=== PATIENT | male | born 1940 | race Hispanic/Latino ===

== ENCOUNTER 2018-07-23 15:09 | Emergency (ER) | payer MEDICARE ==
--- NOTE | 2018-07-23 15:22 | Emergency Department Report ---
Blank Doc - Documentation Documentation: 78 y o male brought to ED by [facility] for violence behavior to be admitted here at [facility] joseantonino guanako admitted to behavioral health
[2018-07-23 16:16] LABS: Basophils # (Auto) 0.1 K/mm3 (0.0-0.1); Basophils % (Auto) 0.9 % (0.0-1.8); Eosinophils % (Auto) 11.1 % (0.0-4.3); Hematocrit 31.4 % (35.5-45.6); Lymphocytes # (Auto) 1.4 K/mm3 (1.2-5.4); Lymphocytes % (Auto) 15.9 % (13.4-35.0); Mean Corpuscular HGB Conc 35 % (32-34); Mean Corpuscular Volume 94 fl (84-94); Monocytes # (Auto) 0.8 K/mm3 (0.0-0.8); Monocytes % (Auto) 8.8 % (0.0-7.3); Platelet Count 192 K/mm3 (140-440); Red Blood Count 3.35 M/mm3 (3.65-5.03); Red Cell Distribution Width 13.2 % (13.2-15.2)
[2018-07-23 16:29] LABS: Calcium 8.8 mg/dL (8.4-10.2)
[2018-07-23 16:48] LABS: Amphetamine Screen,Urine PRESUMPTIVE NEGATIVE; Benzodiazepines Screen,Urine PRESUMPTIVE NEGATIVE; Cannabinoid Screen,Urine PRESUMPTIVE NEGATIVE; Cocaine Screen,Urine PRESUMPTIVE NEGATIVE; Methadone Screen,Urine PRESUMPTIVE NEGATIVE; Opiate Screen,Urine PRESUMPTIVE NEGATIVE
[2018-07-23 16:59] LABS: Bacteria,Urine 2+ /HPF (Negative); Mucus,Urine FEW /HPF
[2018-07-23 17:00] LABS: Bilirubin,Urine NEG (Negative); Blood,Urine NEG (Negative); Color,Urine Yellow (Yellow); Urobilinogen,Urine < 2.0 mg/dL (<2.0)
--- NOTE | 2018-07-23 18:23 | Emergency Department Report ---
ED General Adult HPI - General Chief complaint: Psych Stated complaint: MH Time Seen by Provider: 07/23/18 15:17 Source: RN/MD Mode of arrival: Wheelchair Limitations: Altered Mental Status - History of Present Illness Initial comments: The patient presents to our emergency department via EMS from a snf in [place], [place] for placement into a [facility]. The patient has not even a septic to the facility but needs to stop in the ED for medical clearance. The patient has dementia and is not cooperative on my history and physical. -: unknown Severity scale (0 -10): 0 Improves with: none Worsens with: none Associated Symptoms: denies other symptoms - Related Data Allergies Allergy/AdvReac Type Severity Reaction Status Date / Time atorvastatin [From Lipitor] Allergy Unknown Verified 07/23/18 15:14 rosuvastatin [From Crestor] Allergy Unknown Verified 07/23/18 15:14 ED Review of Systems ROS: Stated complaint: MH Other details as noted in HPI Comment: Unobtainable due to pts medical conditions (due to the patient's dementia) ED Past Medical Hx - Past Medical History Previous Medical History?: Yes Hx Hypertension: Yes Hx Diabetes: Yes Additional medical history: ANGINA, DEMENTIA, UTI, ISCHEMIC CARDIOMYOPATHY, HYPERLIPIDEMIA - Surgical History Past Surgical History?: Yes Hx Open Heart Surgery: Yes - Social History Smoking Status: Never Smoker ED Physical Exam - General General appearance: alert, in no apparent distress, other (demented) - Head Head exam: Present: atraumatic, normocephalic - Eye Eye exam: Present: normal appearance - ENT ENT exam: Present: mucous membranes dry - Neck Neck exam: Present: normal inspection - Respiratory Respiratory exam: Present: normal lung sounds bilaterally. Absent: respiratory distress - Cardiovascular Cardiovascular Exam: Present: regular rate, normal rhythm. Absent: systolic murmur, diastolic murmur, rubs, gallop - GI/Abdominal GI/Abdominal exam: Present: soft, normal bowel sounds - Rectal Rectal exam: Present: deferred - Extremities Exam Extremities exam: Present: normal inspection - Back Exam Back exam: Present: normal inspection - Neurological Exam Neurological exam: Present: alert, other (not able to completely assess due to the patient's condition) - Psychiatric Psychiatric exam: Present: other (not able to completely assess due to the patient's condition) - Skin Skin exam: Present: warm, dry, intact, normal color. Absent: rash ED Course Vital Signs 07/23/18 07/23/18 07/23/18 15:18 15:40 15:45 Temperature 97.4 F L Pulse Rate 63 64 39 L Respiratory 18 10 L 10 L Rate Blood Pressure 145/62 95/49 Blood Pressure [Left] O2 Sat by Pulse 97 Oximetry 07/23/18 07/23/18 07/23/18 16:01 16:15 16:31 Temperature Pulse Rate 74 41 L 48 L Respiratory 9 L 11 L 16 Rate Blood Pressure 86/56 95/49 106/44 Blood Pressure 106/44 [Left] O2 Sat by Pulse Oximetry 07/23/18 07/23/18 07/23/18 16:32 16:45 17:01 Temperature Pulse Rate 47 L 63 Respiratory 11 L 15 15 Rate Blood Pressure 106/44 121/46 Blood Pressure [Left] O2 Sat by Pulse 97 Oximetry 07/23/18 07/23/18 07/23/18 17:15 17:31 17:45 Temperature Pulse Rate 51 L 63 59 L Respiratory 26 H 10 L 13 Rate Blood Pressure 107/41 122/77 112/52 Blood Pressure [Left] O2 Sat by Pulse Oximetry ED Medical Decision Making - Lab Data Result diagrams: 07/23/18 16:04 07/23/18 16:04 Lab Results 07/23/18 07/23/18 07/23/18 Range/Units 16:04 16:04 16:04 WBC 8.7 (4.5-11.0) K/mm3 RBC 3.35 L (3.65-5.03) M/mm3 Hgb 11.0 L (11.8-15.2) gm/dl Hct 31.4 L (35.5-45.6) % MCV 94 (84-94) fl MCH 33 H (28-32) pg MCHC 35 H (32-34) % RDW 13.2 (13.2-15.2) % Plt Count 192 (140-440) K/mm3 Lymph % (Auto) 15.9 (13.4-35.0) % Mcintosh % (Auto) 8.8 H (0.0-7.3) % Eos % (Auto) 11.1 H (0.0-4.3) % Baso % (Auto) 0.9 (0.0-1.8) % Lymph # 1.4 (1.2-5.4) K/mm3 Mcintosh # 0.8 (0.0-0.8) K/mm3 Eos # 1.0 H (0.0-0.4) K/mm3 Baso # 0.1 (0.0-0.1) K/mm3 Seg Neutrophils % 63.3 (40.0-70.0) % Seg Neutrophils # 5.5 (1.8-7.7) K/mm3 Sodium 132 L (137-145) mmol/L Potassium 5.0 (3.6-5.0) mmol/L Chloride 101.2 (98-107) mmol/L Carbon Dioxide 19 L (22-30) mmol/L Anion Gap 17 mmol/L BUN 38 H (9-20) mg/dL Creatinine 1.8 H (0.8-1.5) mg/dL Estimated GFR 36 ml/min BUN/Creatinine Ratio 21 % Glucose 417 H (75-100) mg/dL Calcium 8.8 (8.4-10.2) mg/dL Urine Color (Yellow) Urine Turbidity (Clear) Urine pH (5.0-7.0) Ur Specific [place] (1.003-1.030) Urine Protein (Negative) mg/dL Urine Glucose (UA) (Negative) mg/dL Urine Ketones (Negative) mg/dL Urine Blood (Negative) Urine Nitrite (Negative) Urine Bilirubin (Negative) Urine Urobilinogen (<2.0) mg/dL Ur Leukocyte Esterase (Negative) Urine WBC (Auto) (0.0-6.0) /HPF Urine RBC (Auto) (0.0-6.0) /HPF Urine Bacteria (Auto) (Negative) /HPF Urine Mucus /HPF Urine Opiates Screen Urine Methadone Screen Ur Barbiturates Screen Ur Phencyclidine Scrn Ur Amphetamines Screen U Benzodiazepines Scrn Urine Cocaine Screen U Marijuana (THC) Screen Drugs of Abuse Note Plasma/Serum Alcohol < 0.01 (0-0.07) % 07/23/18 07/23/18 Range/Units 16:27 Unknown WBC (4.5-11.0) K/mm3 RBC (3.65-5.03) M/mm3 Hgb (11.8-15.2) gm/dl Hct (35.5-45.6) % MCV (84-94) fl MCH (28-32) pg MCHC (32-34) % RDW (13.2-15.2) % Plt Count (140-440) K/mm3 Lymph % (Auto) (13.4-35.0) % Mcintosh % (Auto) (0.0-7.3) % Eos % (Auto) (0.0-4.3) % Baso % (Auto) (0.0-1.8) % Lymph # (1.2-5.4) K/mm3 Mcintosh # (0.0-0.8) K/mm3 Eos # (0.0-0.4) K/mm3 Baso # (0.0-0.1) K/mm3 Seg Neutrophils % (40.0-70.0) % Seg Neutrophils # (1.8-7.7) K/mm3 Sodium (137-145) mmol/L Potassium (3.6-5.0) mmol/L Chloride (98-107) mmol/L Carbon Dioxide (22-30) mmol/L Anion Gap mmol/L BUN (9-20) mg/dL Creatinine (0.8-1.5) mg/dL Estimated GFR ml/min BUN/Creatinine Ratio % Glucose (75-100) mg/dL Calcium (8.4-10.2) mg/dL Urine Color Yellow (Yellow) Urine Turbidity Clear (Clear) Urine pH 5.0 (5.0-7.0) Ur Specific [place] 1.015 (1.003-1.030) Urine Protein 30 mg/dl (Negative) mg/dL Urine Glucose (UA) >=500 (Negative) mg/dL Urine Ketones Neg (Negative) mg/dL Urine Blood Neg (Negative) Urine Nitrite Neg (Negative) Urine Bilirubin Neg (Negative) Urine Urobilinogen < 2.0 (<2.0) mg/dL Ur Leukocyte Esterase Neg (Negative) Urine WBC (Auto) 1.0 (0.0-6.0) /HPF Urine RBC (Auto) 1.0 (0.0-6.0) /HPF Urine Bacteria (Auto) 2+ (Negative) /HPF Urine Mucus Few /HPF Urine Opiates Screen Presumptive negative Urine Methadone Screen Presumptive negative Ur Barbiturates Screen Presumptive negative Ur Phencyclidine Scrn Presumptive negative Ur Amphetamines Screen Presumptive negative U Benzodiazepines Scrn Presumptive negative Urine Cocaine Screen Presumptive negative U Marijuana (THC) Screen Presumptive negative Drugs of Abuse Note Disclamer Plasma/Serum Alcohol (0-0.07) % - Medical Decision Making Patient Ricardo 1 L of fluid for his dehydration Patient cleared to go to the psychiatric unit with medical consultation as needed Critical care attestation.: If time is entered above; I have spent that time in minutes in the direct care of this critically ill patient, excluding procedure time. ED Disposition Clinical Impression: CLARA (acute kidney injury), Dehydration, Dementia Disposition: [id number]/TX-65 PSY HOSP/PSY UNIT Is pt being admited?: Yes Does the pt Need Aspirin: No Condition: Stable Referrals: RUBEN BARAJAS MD [Primary Care Provider] - 3-5 Days Time of Disposition: 18:23
[2018-07-23] MEDS ORDERED: NACL 0.9% 1000 ML 1,000 ML IV ONE (18:25)
[2018-07-24 01:38] VITALS: BP 155/89
== END 2018-07-24 01:38 ==
LOC: ED 15:09
DX: E86.0 Dehydration (principal); F03.90 Unspecified dementia, unspecified severity, without behavioral disturbance, psychotic disturbance, mood disturbance, and anxiety; I20.9 Angina pectoris, unspecified; I42.9 Cardiomyopathy, unspecified; E78.5 Hyperlipidemia, unspecified; E11.9 Type 2 diabetes mellitus without complications; I10 Essential (primary) hypertension; N17.9 Acute kidney failure, unspecified; Z88.8 Allergy status to other drugs, medicaments and biological substances
CPT/HCPCS: 36415; 80048; 80307; 81001; 85025; 96360; 99283; G0480; J7030; 80320

== ENCOUNTER 2018-07-23 16:19 | Inpatient (IN) | payer MEDICARE ==
[2018-07-24] MEDS ORDERED: GEODON IM PRN (01:11)
--- NOTE | 2018-07-24 08:06 | History and Physical Report ---
GP History & Physical - History of Present Illness Date of admission: 07/23/18 Date of Examination: 07/24/18 Reason for Admission: Danger to self, Danger to others, Unable to care for self Chief Complaint: Agitation per [place] report (patient is aphasic) History of Present Illness: The patient is an 78yo male with history of Dementia and multiple medical problems including HTN, CAD, DM and unsteady gait with frequent falls. He was transferred from [facility] for inpatient psychiatry treatment. The patient is reportedly agitated, uncooperative with cares, undresses and crawls on the floor, refuses to use the wheelchair and insists on walking independently despite being unsteady. The patient is not able to engage in meaningful conversation. I contacted the patient's son (Bobby, [phone]) for collateral information. Bobby reports that patient was diagnosed with dementia over one year ago, he is not aware of patient experiencing adverse reaction to psychotropic medications and consents to medication adjustment with the aim of improving patient's behavior. Legal Status: DPOA for Mental Health Patient Problems: Current Active Problems Delirium due to medical condition with behavioral disturbance (Acute) Major neurocognitive disorder due to Alzheimer's disease, probable, with behavioral disturbance (Acute) Reaction to Hospitalization: Opposed Substance History - Substance History Drug Use: none Hx Tobacco Use: No Alcohol Use: No (Uknown) Past psychiatric history - Past Medical History Past Medical History: CAD, diabetes - past Psychiatric treatment and history Psych: Depression - Social History Social history: other (Patient lives in a Nursing facility) Review of Systems ROS unobtainable: due to mental status Results - Results Labs/Vitals: Laboratory Last Values POC Glucose 221 (70-105) H 07/24/18 07:28 Physical Examination - Constitutional General appearance: Present: no acute distress, well-nourished - EENT Eyes: Present: PERRL, EOM intact ENT: clear oral mucosa - Neck Neck: Present: supple, normal ROM - Respiratory Respiratory effort: normal Mental Status Exam - Exam Orientation: person Affect: agitated Mood: congruent with affect Thought Process: Disorganized Perceptions: visual Speech: paucity Concentration: unable to pay attention Motor activity: restless, agitated Level of consciousness: confused Memory: Recent Impaired, Remote Impaired Interaction: hostile, irritable, uncooperative Assessment and Plan - Psychiatric problem (1) Major neurocognitive disorder due to Alzheimer's disease, probable, with be havioral disturbance Current Visit: Yes Status: Acute (2) Delirium due to medical condition with behavioral disturbance Current Visit: Yes Status: Acute plan to address problem: Patient will be admitted for inpatient psychiatric evaluation, medication adjustment and close monitoring The patient's behavior, mood, sleep and appetite will be closely monitored. Patient will be enrolled in individual and group therapeutic sessions and encouraged to attend. Patient will be provided with a safe and structured environment. Patient's physical health needs will be addressed by the Hospitalist. Social Assessment will be completed and the Compositor Apprentice will work with patient and family to ensure a suitable and safe disposition Medication adjustment will be made as clinically indicated The patient's son agreed on the treatment plan, understood the risk, benefit, alternative treatment, potential consequence of no treatment, and gave informed consent. Physician Certification - Certification Statement Physician Certification Statement: This is an acknowledgement statement that SALLY RODRIGUEZ is a 78 year old M who requires inpatient psychiatric admission for treatment which could reasonably be expected to improve the patient's condition for Dementia with behavioral disturbance Estimated period of time patient will need to remain in the hospital: 7 days Plan for post-hospital care: Out-patient care
[2018-07-24] MEDS ORDERED: ATIVAN IM PRN (09:19)
[2018-07-24 09:39] LABS: Chol/HDL Ratio 4.25 %
[2018-07-24] MEDS ORDERED: D50W (25GM) Syringe IV PRN (12:57)
--- NOTE | 2018-07-24 12:57 | Consultation ---
History of Present Illness - Reason for Consult Consult date: 07/24/18 DM, cellulitis - History of Present Illness The patient is an 78yo male with history of Dementia and multiple medical problems including HTN, CAD, DM and unsteady gait with frequent falls. He was transferred from [facility] for inpatient psychiatry treatment. The patient is reportedly agitated, uncooperative with cares, undresses and crawls on the floor, refuses to use the wheelchair and insists on walking independently despite being unsteady. Patient reportedly had right foot cellulitis that was being treated with Keflex. Consultation has been called for continued monitoring and treatment for the cellulitis and medical management of diabetes mellitus and hypertension. Past History Past Medical History: CAD, diabetes, hypertension Past Surgical History: Other (unable to obtain due to mental status) Social history: other (Patient lives in a Nursing facility) Family history: other (unable to obtain due to mental status) Medications and Allergies Allergies Allergy/AdvReac Type Severity Reaction Status Date / Time atorvastatin [From Lipitor] Allergy Unknown Verified 07/23/18 15:14 rosuvastatin [From Crestor] Allergy Unknown Verified 07/23/18 15:14 Home Medications Medication Instructions Recorded Confirmed Last Taken Type Acetaminophen TAB 325 mg PO Q4-6H PRN MDD 3g/day 07/24/18 07/24/18 Unknown History Acidophilus Lactobacilli 1 cap PO TID 07/24/18 07/24/18 Unknown History Aspirin 81 mg PO DAILY 07/24/18 07/24/18 Unknown History Calcitriol (Nf) 0.25 mcg PO 3XW 07/24/18 07/24/18 Unknown History Colace CAP 100 mg PO DAILY 07/24/18 07/24/18 Unknown History Coreg 6.25 mg PO DAILY 07/24/18 07/24/18 Unknown History Dulcolax suppos 10 mg [place] PRN PRN 07/24/18 07/24/18 Unknown History Ferrous Sulfate 325 mg PO BID 07/24/18 07/24/18 Unknown History Fleet Enema 1 dose AZ PRN PRN 07/24/18 07/24/18 Unknown History Humalog 100 UNITS/ML Kwikpen 10 units SQ PCHS 07/24/18 07/24/18 Unknown History Isosorbide Mononitrate 30 mg PO DAILY 07/24/18 07/24/18 Unknown History Keflex 500 mg PO 4XD 07/24/18 07/24/18 Unknown History Lantus Solostar 10 units SQ HS 07/24/18 07/24/18 Unknown History Milk of Magnesia 30 ml PO PRN PRN 07/24/18 07/24/18 Unknown History Protonix TAB 40 mg PO DAILY 07/24/18 07/24/18 Unknown History Active Meds: Active Medications Lorazepam (Ativan) 0.5 mg PO TID STEVEN Lorazepam (Ativan) 1 mg IM Q4H PRN PRN Reason: Agitation Melatonin (Melatonin) 5 mg PO QHS STEVEN Mirtazapine (Remeron Solutab) 15 mg PO QHS STEVEN Risperidone (Risperdal) 1 mg PO HS STEVEN Review of Systems ROS unobtainable: due to mental status Exam - Constitutional Vitals: Temp Pulse Resp BP Pulse Ox 97.4 F L 43 L 122/58 98 07/24/18 07:45 07/24/18 07:45 07/24/18 07:45 07/24/18 07:45 General appearance: Present: no acute distress, well-nourished - EENT Eyes: Present: PERRL ENT: hearing intact, clear oral mucosa - Neck Neck: Present: supple, normal ROM - Respiratory Respiratory effort: normal Respiratory: bilateral: CTA - Cardiovascular Heart Sounds: Present: S1 & S2. Absent: rub, click - Extremities Extremities: pulses symmetrical, No edema Peripheral Pulses: within normal limits - Abdominal General gastrointestinal: Present: soft, non-tender, non-distended, normal bowel sounds Male genitourinary: Present: normal - Integumentary Integumentary: Present: clear, warm, dry - Musculoskeletal Musculoskeletal: gait normal, strength equal bilaterally - Psychiatric Psychiatric: appropriate mood/affect, intact judgment & insight - Neurologic Neurologic: CNII-XII intact, moves all extremities Results - Labs Labs: Abnormal lab results 07/24/18 07/24/18 07/24/18 Range/Units 07:28 08:36 08:36 POC Glucose 221 H (70-105) Hemoglobin A1c 8.5 H (4-6) % Triglycerides 177 H (2-149) mg/dL HDL Cholesterol 36 L (40-59) mg/dL 07/24/18 Range/Units 11:18 POC Glucose 227 H (70-105) Hemoglobin A1c (4-6) % Triglycerides (2-149) mg/dL HDL Cholesterol (40-59) mg/dL Assessment and Plan Right foot cellulitis. Continue Keflex. Check CBC and right foot x-rays rule out foreign body. Diabetes mellitus type 2. Accu-Cheks as well as discussed. Hypertension. Resume antihypertensive medications. Dementia with behavioral disturbances. Continue per [facility] psych team. History of coronary artery disease/CABG Ischemic cardiomyopathy.
[2018-07-24 14:27] LABS: Hematocrit 31.6 % (35.5-45.6); Hemoglobin 11.1 gm/dl (11.8-15.2); Mean Corpuscular HGB Conc 35 % (32-34); Mean Corpuscular Volume 94 fl (84-94); Platelet Count 185 K/mm3 (140-440); Red Blood Count 3.37 M/mm3 (3.65-5.03); Red Cell Distribution Width 13.4 % (13.2-15.2)
[2018-07-24] MEDS: ATIVAN PO SCH ×2 (14:40→20:39)
[2018-07-24 14:44] LABS: Calcium 8.7 mg/dL (8.4-10.2)
--- NOTE | 2018-07-24 14:54 | XRay Report ---
X-RAY RIGHT FOOT 2 VIEWS: 07/24/18 12:58:00 CLINICAL: Cellulitis. FINDINGS: No fracture or dislocation. Plantar and Achilles calcaneal enthesophytes. No other bone lesion. The joint spaces are normal. Moderate soft tissue swelling of the dorsum of the forefoot. No soft tissue air or foreign body. IMPRESSION: Nonspecific soft tissue swelling. No signs of osteomyelitis or air producing soft tissue infection. Calcaneal enthesopathy.
[2018-07-24 15:40] LABS: Basophils % (Manual) 0 % (0.0-1.8); Total Cells Counted 100
[2018-07-24 15:41] LABS: Anisocytosis Few; Platelet Estimate Consistent w Auto
[2018-07-24] MEDS: HumuLIN R SUB-Q SCH ×2 (17:06→21:19)
[2018-07-24] MEDS: KEFLEX PO SCH (17:06)
[2018-07-24] MEDS: REMERON SOLUTAB PO SCH (21:02)
[2018-07-24] MEDS ORDERED: MELATONIN PO SCH (22:00)
[2018-07-24] MEDS ORDERED: RisperDAL PO SCH (22:00)
[2018-07-25] MEDS: KEFLEX PO SCH ×4 (01:06→17:40)
[2018-07-25] MEDS: HumuLIN R SUB-Q SCH ×4 (08:34→21:18)
[2018-07-25] MEDS: ATIVAN PO SCH ×2 (08:35→13:52)
[2018-07-25] MEDS: HALDOL IM PRN (11:08)
--- NOTE | 2018-07-25 16:39 | Progress Note ---
Subjective Date of service: 07/25/18 Principal diagnosis: Dementia with behavioral disturbance Subjective Comment: The patient is agitated, uncooperative with cares, undresses and crawls on the floor, refuses to use the wheelchair and insists on walking independently despite being unsteady. He is restless this morning, unable to feed himself, confused, combative and up last night. He received PRN Ativan at 02:36hrs last night. Objective - Criteria for Continued Treatment Criteria for Continued Treatment: Improving Level of Functioning, Improving Treatment / Medication Compliance, Stablizing Level of Functioning, Improving Emotional/Socia - Mental Status Mental Status: Lethargic - Objective Observation Participation Level: Minimal Reason(s) For Not Participating: Behaviors, Unable, Wandering Assessment and Plan - Patient Problems (1) Major neurocognitive disorder due to Alzheimer's disease, probable, with behavioral disturbance Current Visit: Yes Status: Acute (2) Delirium due to medical condition with behavioral disturbance Current Visit: Yes Status: Acute Plan to address problem: Patient will be admitted for inpatient psychiatric evaluation, medication adjustment and close monitoring The patient's behavior, mood, sleep and appetite will be closely monitored. Patient will be enrolled in individual and group therapeutic sessions and encouraged to attend. Patient will be provided with a safe and structured environment. Patient's physical health needs will be addressed by the Hospitalist. Social Assessment will be completed and the Driver will work with patient and family to ensure a suitable and safe disposition Medication adjustment will be made as clinically indicated Will discontinue Lorazepam and start Clonazepam with the aim of weaning it off as soon as possible. Will start Low dose Trazodone and Divalproex to calm patient without sedating him. Continue Risperidone for distressing visual hallucinations The patient's son agreed on the treatment plan, understood the risk, benefit, alternative treatment, potential consequence of no treatment, and gave informed consent.
[2018-07-25] MEDS: REMERON SOLUTAB PO SCH (21:06)
[2018-07-25] MEDS: LANTUS SUB-Q SCH (21:06)
[2018-07-25] MEDS: MELATONIN PO SCH (21:21)
[2018-07-25] MEDS ORDERED: RisperDAL PO SCH (22:00)
[2018-07-26] MEDS: KEFLEX PO SCH ×4 (01:22→17:49)
[2018-07-26] MEDS: DESYREL PO PRN (02:35)
[2018-07-26] MEDS: HALDOL IM PRN ×2 (03:20→17:48)
--- NOTE | 2018-07-26 09:14 | Progress Note ---
Subjective Date of service: 07/26/18 Principal diagnosis: Dementia with behavioral disturbance Subjective Comment: Nursing staff reports that patient is up awake, alert, confused and ambulating in the edouard. Gait remains unsteady and patient is holding the rail. Patient attempts to open doors. Not easily redirected. He continues to require PRN medication for agitation. He continues to be agitated and restless. Objective - Criteria for Continued Treatment Criteria for Continued Treatment: Improving Level of Functioning, Improving Treatment / Medication Compliance, Stablizing Level of Functioning, Improving Emotional/Socia - Mental Status Mental Status: Lethargic - Objective Observation Participation Level: None Reason(s) For Not Participating: Unable, Wandering Assessment and Plan - Patient Problems (1) Major neurocognitive disorder due to Alzheimer's disease, probable, with behavioral disturbance Current Visit: Yes Status: Acute (2) Delirium due to medical condition with behavioral disturbance Current Visit: Yes Status: Acute Plan to address problem: Patient will be admitted for inpatient psychiatric evaluation, medication adjustment and close monitoring The patient's behavior, mood, sleep and appetite will be closely monitored. Patient will be enrolled in individual and group therapeutic sessions and encouraged to attend. Patient will be provided with a safe and structured environment. Patient's physical health needs will be addressed by the Hospitalist. Social Assessment will be completed and the Rn Transplant will work with patient and family to ensure a suitable and safe disposition Medication adjustment will be made as clinically indicated Will discontinue Lorazepam and start Clonazepam with the aim of weaning it off as soon as possible. Will continue low dose Trazodone and Divalproex to calm patient without sedating him. Continue Risperidone for distressing visual hallucinations The patient's son agreed on the treatment plan, understood the risk, benefit, alternative treatment, potential consequence of no treatment, and gave informed consent.
[2018-07-26] MEDS: HumuLIN R SUB-Q SCH ×4 (10:24→21:49)
[2018-07-26] MEDS: REMERON SOLUTAB PO SCH (21:37)
[2018-07-26] MEDS: MELATONIN PO SCH (21:37)
[2018-07-26] MEDS: LANTUS SUB-Q SCH (21:38)
[2018-07-27] MEDS: KEFLEX PO SCH ×4 (00:19→17:19)
[2018-07-27] MEDS: HumuLIN R SUB-Q SCH ×4 (08:19→21:30)
[2018-07-27] MEDS: MELATONIN PO SCH (21:26)
[2018-07-27] MEDS: DESYREL PO PRN (21:27)
[2018-07-27] MEDS: REMERON SOLUTAB PO SCH (21:28)
[2018-07-27] MEDS: LANTUS SUB-Q SCH (21:29)
[2018-07-28] MEDS: KEFLEX PO SCH ×4 (06:34→17:32)
[2018-07-28] MEDS: HumuLIN R SUB-Q SCH ×4 (07:30→23:22)
--- NOTE | 2018-07-28 08:04 | Progress Note ---
Subjective Date of service: 07/28/18 Principal diagnosis: Dementia with behavioral disturbance Subjective Comment: Nursing staff reports that patient continues to be restless while in recliner, constantly trying to get out of the recliner and requires one to one observation when awake. He continues to require PRN medication for agitation. He slept through the night and dietary intake is adequate. No reported or observed medication side effects. Objective - Criteria for Continued Treatment Criteria for Continued Treatment: Improving Level of Functioning, Stablizing Level of Functioning, Improving Emotional/Socia - Mental Status Mental Status: Oriented x 1 Person only - Objective Observation Participation Level: Minimal Reason(s) For Not Participating: Unable Assessment and Plan - Patient Problems (1) Major neurocognitive disorder due to Alzheimer's disease, probable, with behavioral disturbance Current Visit: Yes Status: Acute (2) Delirium due to medical condition with behavioral disturbance Current Visit: Yes Status: Acute Plan to address problem: Patient will be admitted for inpatient psychiatric evaluation, medication adjustment and close monitoring The patient's behavior, mood, sleep and appetite will be closely monitored. Patient will be enrolled in individual and group therapeutic sessions and e ncouraged to attend. Patient will be provided with a safe and structured environment. Patient's physical health needs will be addressed by the Hospitalist. Social Assessment will be completed and the Factory Machine Computer Operator will work with patient and family to ensure a suitable and safe disposition Medication adjustment will be made as clinically indicated Will continue Clonazepam with the aim of weaning it off as soon as possible. Will continue low dose Trazodone and Divalproex to calm patient without sedating him. Continue Risperidone for distressing visual hallucinations The patient's son agreed on the treatment plan, understood the risk, benefit, alternative treatment, potential consequence of no treatment, and gave informed consent.
[2018-07-28] MEDS: MELATONIN PO SCH (21:18)
[2018-07-28] MEDS: DESYREL PO PRN (21:18)
[2018-07-28] MEDS: REMERON SOLUTAB PO SCH (21:21)
[2018-07-28] MEDS: LANTUS SUB-Q SCH (23:47)
[2018-07-29] MEDS: KEFLEX PO SCH ×4 (02:04→18:27)
[2018-07-29] MEDS: HumuLIN R SUB-Q SCH ×4 (09:00→22:00)
--- NOTE | 2018-07-29 09:15 | Progress Note ---
Subjective Date of service: 07/29/18 Principal diagnosis: Dementia with behavioral disturbance Subjective Comment: Nursing staff reports that patient continues to be restless but not aggressive. He only slept 2 hours last night Dietary intake is adequate. No reported or observed medication side effects. Will plan to discharge in am tomorrow if patient continues to do well. Objective - Criteria for Continued Treatment Criteria for Continued Treatment: Improving Level of Functioning, Stablizing Level of Functioning, Improving Emotional/Socia - Mental Status Mental Status: Oriented x 1 Person only - Objective Observation Participation Level: Minimal Assessment and Plan - Patient Problems (1) Major neurocognitive disorder due to Alzheimer's disease, probable, with behavioral disturbance Current Visit: Yes Status: Acute (2) Delirium due to medical condition with behavioral disturbance Current Visit: Yes Status: Acute Plan to address problem: Patient will be admitted for inpatient psychiatric evaluation, medication adjustment and close monitoring The patient's behavior, mood, sleep and appetite will be closely monitored. Patient will be enrolled in individual and group therapeutic sessions and encouraged to attend. Patient will be provided with a safe and structured environment. Patient's physical health needs will be addressed by the Hospitalist. Social Assessment will be completed and the Staff Trainer will work with patient and family to ensure a suitable and safe disposition Medication adjustment will be made as clinically indicated Change Seroquel and Mirtazapine to q6pm to improve sleep at night and decrease tactical response group officer sedation Will continue low dose Trazodone and Divalproex to calm patient without sedating him. Continue Risperidone for distressing visual hallucinations The patient's son agreed on the treatment plan, understood the risk, benefit, alternative treatment, potential consequence of no treatment, and gave informed consent.
[2018-07-29] MEDS ORDERED: DESYREL PO PRN (09:37)
[2018-07-29] MEDS ORDERED: REMERON SOLUTAB PO SCH (18:00)
[2018-07-29] MEDS ORDERED: DESYREL PO SCH ×2 (18:00→22:00)
[2018-07-29] MEDS: LANTUS SUB-Q SCH (22:01)
[2018-07-29] MEDS: HALDOL IM PRN (23:12)
[2018-07-30] MEDS: KEFLEX PO SCH ×2 (01:11→06:01)
[2018-07-30] MEDS: HumuLIN R SUB-Q SCH ×2 (07:30→11:55)
--- NOTE | 2018-07-30 08:19 | Discharge Summary ---
Providers - Providers Date of Admission: 07/23/18 16:32 Date of discharge: 07/30/18 Attending physician: NAYANA KOCH MD 07/24/18 01:27 Consult to Physician [CONS] Routine Comment: Consulting Provider: MARILEE LAMB Physician Instructions: Reason For Exam: new admission h & p 07/24/18 18:16 Speech Therapy Evaluation and Treat [CONS] Routine Reason For Exam: difficulty swallowing [facility] Reason for admission: agitated, uncooperative with cares, undresses and crawls on the floor. Condition: Fair Hospital course: The patient was provided inpatient psychiatric treatment with safe and supportive environment, group therapy, individual counseling, psychiatric medication, medication adjustment, adverse effect monitor, medical evaluation, medical treatment, social service assessment, family/social support meeting, placement assessment and psycho-education. The patients mood, anxiety, thoughts, stress management skill, cognition, impulse/anger control, motivation, understanding of disease, compliance to treatment and appreciation on family/social support are improved and stabilized. At the time of discharge, the patient had no suicidal ideas, no homicidal ideas, no aggressive thoughts, no endangering behavior and no debilitating adverse effects. The patient's family agreed on the treatment plan, understood the risk, benefit, alternative treatment, potential consequence of no treatment, and gave informed consent. The patient was advised to be compliant with medications, not to use drugs and not to drink alcohol. The [facility] staff understands that if suicidal ideas, homicidal ideas, or any endangering thoughts arise, the patient should immediately seek for emergent assistance including but not limited to crisis hot line and emergency room. Follow up with out-patient Psychiatrist and PCP within 14 - 21 days of discharge. Disposition: [id number] Time spent for discharge: 35 mins Allergies/Adverse Reactions: Allergies atorvastatin [From Lipitor] Allergy (Verified 07/23/18 15:14) Unknown rosuvastatin [From Crestor] Allergy (Verified 07/23/18 15:14) Unknown Vital Signs: Last Vital Signs Temp 97.4 F L 07/29/18 22:00 Pulse 81 07/29/18 22:00 Resp 18 07/29/18 22:00 BP 150/79 07/29/18 22:00 Pulse Ox 99 07/29/18 22:00 Last Lab: Laboratory Last Values WBC 8.5 K/mm3 (4.5-11.0) 07/24/18 13:20 RBC 3.37 M/mm3 (3.65-5.03) L 07/24/18 13:20 Hgb 11.1 gm/dl (11.8-15.2) L 07/24/18 13:20 Hct 31.6 % (35.5-45.6) L 07/24/18 13:20 MCV 94 fl (84-94) 07/24/18 13:20 MCH 33 pg (28-32) H 07/24/18 13:20 MCHC 35 % (32-34) H 07/24/18 13:20 RDW 13.4 % (13.2-15.2) 07/24/18 13:20 Plt Count 185 K/mm3 (140-440) 07/24/18 13:20 Eos % (Auto) Green Building Energy Engineer 07/24/18 13:20 Add Manual Diff Complete 07/24/18 13:20 Total Counted 100 07/24/18 13:20 Seg Neuts % (Manual) 74.0 % (40.0-70.0) H 07/24/18 13:20 0 % 07/24/18 13:20 8.0 % (13.4-35.0) L 07/24/18 13:20 Reactive Lymphs % (Man) 0 % 07/24/18 13:20 9.0 % (0.0-7.3) H 07/24/18 13:20 9.0 % (0.0-4.3) H 07/24/18 13:20 0 % (0.0-1.8) 07/24/18 13:20 0 % 07/24/18 13:20 0 % 07/24/18 13:20 0 % 07/24/18 13:20 0 % 07/24/18 13:20 Nucleated RBC % Not Reportable 07/24/18 13:20 Seg Neutrophils # Man 6.3 K/mm3 (1.8-7.7) 07/24/18 13:20 Band Neutrophils # 0.0 K/mm3 07/24/18 13:20 0.7 K/mm3 (1.2-5.4) L 07/24/18 13:20 Abs React Lymphs (Man) 0.0 K/mm3 07/24/18 13:20 0.8 K/mm3 (0.0-0.8) 07/24/18 13:20 0.8 K/mm3 (0.0-0.4) H 07/24/18 13:20 0.0 K/mm3 (0.0-0.1) 07/24/18 13:20 0.0 K/mm3 07/24/18 13:20 0.0 K/mm3 07/24/18 13:20 0.0 K/mm3 07/24/18 13:20 Blast Cells # 0.0 K/mm3 07/24/18 13:20 WBC Morphology Not Reportable 07/24/18 13:20 Hypersegmented Neuts Not Reportable 07/24/18 13:20 Hyposegmented Neuts Not Reportable 07/24/18 13:20 Hypogranular Neuts Not Reportable 07/24/18 13:20 Not Reportable 07/24/18 13:20 Not Reportable 07/24/18 13:20 Not Reportable 07/24/18 13:20 Not Reportable 07/24/18 13:20 Not Reportable 07/24/18 13:20 Not Reportable 07/24/18 13:20 Consistent w auto 07/24/18 13:20 Not Reportable 07/24/18 13:20 Plt Clumps, EDTA Not Reportable 07/24/18 13:20 Not Reportable 07/24/18 13:20 Not Reportable 07/24/18 13:20 Not Reportable 07/24/18 13:20 Plt Morphology Comment Not Reportable 07/24/18 13:20 RBC Morphology Not Reportable 07/24/18 13:20 Dimorphic RBCs Not Reportable 07/24/18 13:20 Not Reportable 07/24/18 13:20 Not Reportable 07/24/18 13:20 Not Reportable 07/24/18 13:20 Few 07/24/18 13:20 Not Reportable 07/24/18 13:20 Not Reportable 07/24/18 13:20 Not Reportable 07/24/18 13:20 Not Reportable 07/24/18 13:20 Not Reportable 07/24/18 13:20 Not Reportable 07/24/18 13:20 Not Reportable 07/24/18 13:20 Not Reportable 07/24/18 13:20 Not Reportable 07/24/18 13:20 Not Reportable 07/24/18 13:20 Not Reportable 07/24/18 13:20 Not Reportable 07/24/18 13:20 Not Reportable 07/24/18 13:20 Not Reportable 07/24/18 13:20 Not Reportable 07/24/18 13:20 Acanthocytes (Spur) Not Reportable 07/24/18 13:20 Rouleaux Not Reportable 07/24/18 13:20 Not Reportable 07/24/18 13:20 Not Reportable 07/24/18 13:20 Not Reportable 07/24/18 13:20 Not Reportable 07/24/18 13:20 Hem Pathologist Commnt No 07/24/18 13:20 Sodium 138 mmol/L (137-145) 07/24/18 13:20 Potassium 4.8 mmol/L (3.6-5.0) 07/24/18 13:20 Chloride 104.0 mmol/L (98-107) 07/24/18 13:20 Carbon Dioxide 23 mmol/L (22-30) 07/24/18 13:20 16 mmol/L 07/24/18 13:20 BUN 31 mg/dL (9-20) H 07/24/18 13:20 1.4 mg/dL (0.8-1.5) 07/24/18 13:20 Estimated GFR 49 ml/min 07/24/18 13:20 22 % 07/24/18 13:20 Glucose 282 mg/dL (75-100) H 07/24/18 13:20 POC Glucose 137 (70-105) H 07/30/18 06:39 8.5 % (4-6) H 07/24/18 08:36 Calcium 8.7 mg/dL (8.4-10.2) 07/24/18 13:20 Triglycerides 177 mg/dL (2-149) H 07/24/18 08:36 Cholesterol 153 mg/dL (50-199) 07/24/18 08:36 99 mg/dL (50-130) 07/24/18 08:36 36 mg/dL (40-59) L 07/24/18 08:36 4.25 % 07/24/18 08:36 Valproic Acid 44.9 ug/mL (50-100) L 07/29/18 16:27 - Discharge Diagnoses (1) Major neurocognitive disorder due to Alzheimer's disease, probable, with behavioral disturbance Status: Acute (2) Delirium due to medical condition with behavioral disturbance Status: Acute Core Measure Documentation - Palliative Care Palliative Care/ Comfort Measures: Not Applicable - Core Measures Any of the following diagnoses?: none Exam - Constitutional Vitals: Temp Pulse Resp BP Pulse Ox 97.4 F L 81 18 150/79 99 07/29/18 22:00 07/29/18 22:00 07/29/18 22:00 07/29/18 22:00 07/29/18 22:00 General appearance: Present: no acute distress, well-nourished - EENT Eyes: Present: PERRL, EOM intact ENT: hearing intact, clear oral mucosa - Neck Neck: Present: supple, normal ROM - Respiratory Respiratory effort: normal Plan Activity: fall precautions Diet: regular Follow up with: RUBEN BARAJAS MD [Primary Care Provider] - 7 Days Prescriptions: traZODone [Desyrel] 50 mg PO QHS PRN 30 Days tablet PRN Reason: Insomnia Divalproex Sprinkle [Depakote Sprinkle] 250 mg PO Q8HR 30 Days capsule traZODone [Desyrel] 50 mg PO QPM 30 Days tablet Mirtazapine Solutab [Remeron 15mg Solutab] 15 mg PO QPM 30 Days tab.rapdis QUEtiapine [SEROquel] 100 mg PO QPM 30 Days tablet
[2018-07-30 09:39] VITALS: BP 133/78
== END 2018-07-30 12:00 | DRG 57 ==
LOC: 3A 16:19 → UNDOADMIN 16:19 → 5A 16:32
PROVIDERS: ADMIT Psychiatry & Neurology Psychiatry; ATTEND Psychiatry & Neurology Psychiatry
DX: G30.9 Alzheimer's disease, unspecified (principal); F05 Delirium due to known physiological condition; F02.81 Dementia in other diseases classified elsewhere, unspecified severity, with behavioral disturbance; L03.115 Cellulitis of right lower limb; I25.5 Ischemic cardiomyopathy; I25.10 Atherosclerotic heart disease of native coronary artery without angina pectoris; E11.9 Type 2 diabetes mellitus without complications; I10 Essential (primary) hypertension; F32.9 Major depressive disorder, single episode, unspecified; Z88.6 Allergy status to analgesic agent; Z79.82 Long term (current) use of aspirin; Z79.899 Other long term (current) drug therapy; Z79.84 Long term (current) use of oral hypoglycemic drugs
CPT/HCPCS: 36415; 80048; 80061; 80164; 80307; 80320; 81001; 82962; 83036; 85007; 85025; 96360; G0378; G0480; J1630; J1815; J2060; J7030